=== PATIENT | male | born 1965 | race Caucasian/White ===

== ENCOUNTER 2022-06-10 17:40 | Inpatient (IN) | payer MEDICAID ==
[~2022-06-10] VITALS: Ht 185.4 cm; Wt 235.9 kg
[2022-06-10] MEDS ORDERED: ONDANSETRON HCL INJ 2MG/ML 2ML 2 MG/ML VIAL IV STA (18:49)
[2022-06-10] MEDS ORDERED: ACETAMINOPHEN 325 MG TAB PO ONE (19:00)
[2022-06-10] MEDS ORDERED: SODIUM CHLORIDE 0.9% 1000ML 1,000 ML IV ONE ×2 (19:00→20:30)
[2022-06-10] MEDS ORDERED: BENZONATATE 100 MG CAP PO PRN ×2 (19:00→23:30)
[2022-06-10] MEDS ORDERED: KETOROLAC TROMETHAMINE 60 MG/2 ML VIAL IM ONE (19:00)
[2022-06-10 19:07] LABS: BASOPHILS % 0.1 % (0.0-1.0); HEMATOCRIT 44.7 % (38.2-49.6); HEMOGLOBIN 14.4 g/dL (14.0-18.0); LYMPHOCYTES # (AUTO) 0.4 (1.0-3.2); LYMPHOCYTES % 1.6 % (18.0-39.1); MEAN CORPUSCULAR HEMOGLOBIN 28.3 pg (28-32); MEAN CORPUSCULAR HGB CONC 32.2 g/dL (31-35); MEAN CORPUSCULAR VOLUME 87.8 fL (81-99); MONOCYTES # (AUTO) 0.7 (0.2-0.8); MONOCYTES % 2.7 % (4.4-11.3); NEUTROPHILS # (AUTO) 22.4 (2.1-6.9); NEUTROPHILS % 94.8 % (38.7-80.0); PLATELET COUNT 201 x10e3/uL (140-360); RED BLOOD COUNT 5.09 x10e6/uL (4.3-5.7); RED CELL DISTRIBUTION WIDTH 13.5 % (11.7-14.4)
[2022-06-10 19:24] LABS: ALBUMIN 3.2 g/dL (3.5-5.0); ALBUMIN/GLOBULIN RATIO 0.7 (0.8-2.0); ANION GAP 15.3 mmol/L (8-16); CALCIUM 9.3 mg/dL (8.4-10.2); CREATININE, SERUM 1.21 mg/dL (0.72-1.25); POTASSIUM 4.3 mmol/L (3.5-5.1)
[2022-06-10] MEDS ORDERED: Vancomycin IV 2 GM in SODIUM CHLORIDE 0.9% 500ML 500 ML IV STA (19:50)
[2022-06-10] MEDS ORDERED: SODIUM CHLORIDE 0.9% 500ML 500 ML ONE (20:18)
[2022-06-10] MEDS ORDERED: Vancomycin IV 1 GM VIAL ONE (20:18)
[2022-06-10] MEDS ORDERED: CEFTRIAXONE 1 GM VIAL IV ONE (21:15)
[2022-06-10] MEDS ORDERED: ONDANSETRON HCL INJ 2MG/ML 2ML 2 MG/ML VIAL IV PRN ×2 (21:30→23:30)
[2022-06-10] MEDS ORDERED: SODIUM CHLORIDE FLUSH 10 ML SYR INJ PRN (21:30)
[2022-06-10] MEDS ORDERED: ACETAMINOPHEN 325 MG TAB PO PRN (23:00)
[2022-06-10] MEDS ORDERED: DIPHENHYDRAMINE HCL 25 MG CAP PO PRN (23:30)
[2022-06-10] MEDS ORDERED: DEXTROSE 50% SYRINGE 50 ML IV PRN (23:30)
[2022-06-10] MEDS ORDERED: LIDOCAINE 4% PATCH TP PRN (23:30)
[2022-06-10] MEDS ORDERED: HYDRALAZINE HCL 20 MG/ML VIAL IV PRN (23:30)
[2022-06-10] MEDS ORDERED: ALBUTEROL/IPRATROPIUM 3 ML NEB NEB PRN (23:30)
[2022-06-10] MEDS ORDERED: SIMETHICONE 80 MG CHEW PO PRN (23:30)
[2022-06-10] MEDS: NOREPINEPHRINE 8 MG/D5W 250 ML 250 ML IV SCH (23:34)
[2022-06-10] MEDS ORDERED: NOREPINEPHRINE 8 MG/D5W 250 ML 250 ML ONE (23:39)
[2022-06-11] VITALS (76 sets, daily range): BP systolic 75–150; BP diastolic 30–126
[2022-06-11 01:15] LABS: CLARITY,URINE SL CLOUDY (CLEAR); COLOR,URINE AMBER (YELLOW); KETONES,URINE TRACE (NEGATIVE); LEUKOCYTE ESTERASE ,URINE NEGATIVE (NEGATIVE); NITRITE,URINE NEGATIVE (NEGATIVE); PROTEIN,URINE DIPSTICK 1+ (NEGATIVE); URINE UROBILINOGEN 0.2 mg/dL (0.2 - 1)
[2022-06-11 01:18] LABS: AMORPHOUS SEDIMENT,URINE FEW (FEW); BACTERIA,URINE FEW /HPF; EPITHELIAL CELLS,URINE RARE /LPF; RBC,URINE 0-5 /HPF (0-5)
[2022-06-11] MEDS: LACTATED RINGER'S 1,000 ML INJ SCH ×2 (01:30→07:40)
[2022-06-11 05:18] LABS: BASOPHILS % 0.2 % (0.0-1.0); HEMATOCRIT 41.6 % (38.2-49.6); HEMOGLOBIN 13.2 g/dL (14.0-18.0); LYMPHOCYTES # (AUTO) 0.4 (1.0-3.2); LYMPHOCYTES % 2.2 % (18.0-39.1); MEAN CORPUSCULAR HEMOGLOBIN 28.4 pg (28-32); MEAN CORPUSCULAR HGB CONC 31.7 g/dL (31-35); MEAN CORPUSCULAR VOLUME 89.7 fL (81-99); MONOCYTES # (AUTO) 0.6 (0.2-0.8); NEUTROPHILS # (AUTO) 17.9 (2.1-6.9); NEUTROPHILS % 94.1 % (38.7-80.0); PLATELET COUNT 144 x10e3/uL (140-360); RED BLOOD COUNT 4.64 x10e6/uL (4.3-5.7); RED CELL DISTRIBUTION WIDTH 13.7 % (11.7-14.4)
[2022-06-11 05:55] LABS: ALBUMIN 2.7 g/dL (3.5-5.0); ALBUMIN/GLOBULIN RATIO 0.7 (0.8-2.0); ANION GAP 12.4 mmol/L (8-16); CALCIUM 8.5 mg/dL (8.4-10.2); CREATININE, SERUM 1.03 mg/dL (0.72-1.25); POTASSIUM 4.4 mmol/L (3.5-5.1)
[2022-06-11 06:13] LABS: CHOL/HDL RATIO 3.8 (3.9-4.7); MAGNESIUM 1.6 MG/DL (1.3-2.1)
[2022-06-11 06:34] LABS: THYROID STIMULATING HORMONE 0.302 uIU/mL (0.350-4.940)
[2022-06-11] MEDS: PANTOPRAZOLE SOD 40 MG TABEC PO SCH (07:39)
[2022-06-11] MEDS: ACETAMINOPHEN 325 MG TAB PO PRN ×3 (08:58→22:10)
[2022-06-11] MEDS: MUPIROCIN 2% OINT 22 GM TUBE TOP SCH ×2 (08:59→20:06)
[2022-06-11] MEDS ORDERED: Vancomycin IV 1 GM in SODIUM CHLORIDE 0.9% 250ML 250 ML IV SCH (09:00)
[2022-06-11] MEDS: ENOXAPARIN SOD INJ 40 MG/0.4 ML SYR SC SCH (16:49)
[2022-06-11] MEDS: Vancomycin IV 2 GM in SODIUM CHLORIDE 0.9% 500ML 500 ML IV SCH (20:05)
[2022-06-11] MEDS: NOREPINEPHRINE 8 MG/D5W 250 ML 250 ML IV SCH (23:30)
[2022-06-12] VITALS (31 sets, daily range): BP systolic 91–154; BP diastolic 39–122
[2022-06-12] MEDS: HYDROCODONE/APAP 5MG-325MG TAB PO PRN ×2 (02:53→15:36)
[2022-06-12] MEDS: PANTOPRAZOLE SOD 40 MG TABEC PO SCH (07:52)
[2022-06-12] MEDS: Vancomycin IV 2 GM in SODIUM CHLORIDE 0.9% 500ML 500 ML IV SCH ×2 (09:28→21:29)
[2022-06-12] MEDS: MUPIROCIN 2% OINT 22 GM TUBE TOP SCH ×2 (09:28→21:30)
[2022-06-12] MEDS: COLLAGENASE 5 GM TUBE TOP SCH (13:00)
[2022-06-12] MEDS: FUROSEMIDE INJ 10 MG/ML 4 ML VIAL IV SCH ×2 (15:31→21:30)
[2022-06-12] MEDS: ENOXAPARIN SOD INJ 40 MG/0.4 ML SYR SC SCH (17:13)
[2022-06-12] MEDS: MELATONIN 5 MG TABLET PO PRN (21:30)
[2022-06-13] VITALS (8 sets, daily range): BP systolic 140–174; BP diastolic 56–69
[2022-06-13] MEDS: HYDROCODONE/APAP 5MG-325MG TAB PO PRN ×2 (05:24→20:45)
[2022-06-13] MEDS: FUROSEMIDE INJ 10 MG/ML 4 ML VIAL IV SCH ×3 (05:27→20:44)
[2022-06-13] MEDS: PANTOPRAZOLE SOD 40 MG TABEC PO SCH (08:51)
[2022-06-13 09:00] LABS: BASOPHILS % 0.2 % (0.0-1.0); EOSINOPHILS # (AUTO) 0.1 (0.0-0.4); EOSINOPHILS % 0.8 % (0.0-6.0); HEMATOCRIT 36.9 % (38.2-49.6); HEMOGLOBIN 11.5 g/dL (14.0-18.0); LYMPHOCYTES % 10.5 % (18.0-39.1); MEAN CORPUSCULAR HEMOGLOBIN 27.8 pg (28-32); MEAN CORPUSCULAR HGB CONC 31.2 g/dL (31-35); MEAN CORPUSCULAR VOLUME 89.1 fL (81-99); MONOCYTES # (AUTO) 0.7 (0.2-0.8); NEUTROPHILS # (AUTO) 7.4 (2.1-6.9); NEUTROPHILS % 80.1 % (38.7-80.0); PLATELET COUNT 143 x10e3/uL (140-360); RED BLOOD COUNT 4.14 x10e6/uL (4.3-5.7); RED CELL DISTRIBUTION WIDTH 13.4 % (11.7-14.4)
[2022-06-13] MEDS: MUPIROCIN 2% OINT 22 GM TUBE TOP SCH ×2 (09:00→20:45)
[2022-06-13 09:18] LABS: ANION GAP 11.9 mmol/L (8-16); CALCIUM 8.8 mg/dL (8.4-10.2); CREATININE, SERUM 0.76 mg/dL (0.72-1.25); POTASSIUM 3.9 mmol/L (3.5-5.1)
[2022-06-13] MEDS: Vancomycin IV 2 GM in SODIUM CHLORIDE 0.9% 500ML 500 ML IV SCH ×2 (09:31→20:45)
[2022-06-13] MEDS: ENOXAPARIN SOD INJ 40 MG/0.4 ML SYR SC SCH (16:50)
[2022-06-13] MEDS: COLLAGENASE 5 GM TUBE TOP SCH (16:51)
[2022-06-13] MEDS ORDERED: METOLAZONE 5 MG TAB PO ONE (21:15)
[2022-06-14] VITALS (9 sets, daily range): BP systolic 133–166; BP diastolic 52–64
[2022-06-14] MEDS: HYDROCODONE/APAP 5MG-325MG TAB PO PRN ×2 (04:10→20:20)
[2022-06-14] MEDS: FUROSEMIDE INJ 10 MG/ML 4 ML VIAL IV SCH (05:22)
[2022-06-14 07:12] LABS: ANION GAP 13.4 mmol/L (8-16); CALCIUM 9.1 mg/dL (8.4-10.2); CREATININE, SERUM 0.71 mg/dL (0.72-1.25); POTASSIUM 3.4 mmol/L (3.5-5.1)
[2022-06-14 07:29] LABS: BASOPHILS % 0.2 % (0.0-1.0); EOSINOPHILS # (AUTO) 0.2 (0.0-0.4); EOSINOPHILS % 1.4 % (0.0-6.0); HEMATOCRIT 37.9 % (38.2-49.6); HEMOGLOBIN 12.2 g/dL (14.0-18.0); LYMPHOCYTES # (AUTO) 1.3 (1.0-3.2); MEAN CORPUSCULAR HEMOGLOBIN 28.4 pg (28-32); MEAN CORPUSCULAR HGB CONC 32.2 g/dL (31-35); MEAN CORPUSCULAR VOLUME 88.1 fL (81-99); MONOCYTES # (AUTO) 1.2 (0.2-0.8); MONOCYTES % 10.8 % (4.4-11.3); NEUTROPHILS # (AUTO) 7.9 (2.1-6.9); NEUTROPHILS % 74.7 % (38.7-80.0); PLATELET COUNT 191 x10e3/uL (140-360); RED CELL DISTRIBUTION WIDTH 13.6 % (11.7-14.4)
[2022-06-14] MEDS: Vancomycin IV 2 GM in SODIUM CHLORIDE 0.9% 500ML 500 ML IV SCH ×2 (08:51→20:20)
[2022-06-14] MEDS: PANTOPRAZOLE SOD 40 MG TABEC PO SCH (08:52)
[2022-06-14] MEDS: MUPIROCIN 2% OINT 22 GM TUBE TOP SCH ×2 (13:41→20:21)
[2022-06-14] MEDS: COLLAGENASE 5 GM TUBE TOP SCH (15:23)
[2022-06-14] MEDS: ENOXAPARIN SOD INJ 40 MG/0.4 ML SYR SC SCH (17:46)
[2022-06-14] MEDS: MELATONIN 5 MG TABLET PO PRN (20:20)
[2022-06-14] MEDS: LOSARTAN POTASSIUM 100 MG TAB PO SCH (23:09)
[2022-06-15] VITALS (8 sets, daily range): BP systolic 114–152; BP diastolic 47–82
[2022-06-15] MEDS: HYDROCODONE/APAP 5MG-325MG TAB PO PRN ×2 (05:40→19:03)
[2022-06-15 06:23] LABS: BASOPHILS % 0.3 % (0.0-1.0); EOSINOPHILS # (AUTO) 0.1 (0.0-0.4); EOSINOPHILS % 1.1 % (0.0-6.0); HEMATOCRIT 40.9 % (38.2-49.6); HEMOGLOBIN 13.1 g/dL (14.0-18.0); LYMPHOCYTES # (AUTO) 1.3 (1.0-3.2); LYMPHOCYTES % 12.4 % (18.0-39.1); MEAN CORPUSCULAR HEMOGLOBIN 27.8 pg (28-32); MEAN CORPUSCULAR VOLUME 86.8 fL (81-99); MONOCYTES # (AUTO) 1.3 (0.2-0.8); MONOCYTES % 13.1 % (4.4-11.3); NEUTROPHILS # (AUTO) 7.2 (2.1-6.9); NEUTROPHILS % 70.9 % (38.7-80.0); PLATELET COUNT 212 x10e3/uL (140-360); RED BLOOD COUNT 4.71 x10e6/uL (4.3-5.7); RED CELL DISTRIBUTION WIDTH 13.4 % (11.7-14.4)
[2022-06-15 06:42] LABS: ANION GAP 15.2 mmol/L (8-16); CALCIUM 8.7 mg/dL (8.4-10.2); CREATININE, SERUM 0.76 mg/dL (0.72-1.25); POTASSIUM 3.2 mmol/L (3.5-5.1)
[2022-06-15] MEDS: Vancomycin IV 2 GM in SODIUM CHLORIDE 0.9% 500ML 500 ML IV SCH ×2 (08:58→20:36)
[2022-06-15] MEDS: PANTOPRAZOLE SOD 40 MG TABEC PO SCH (08:58)
[2022-06-15] MEDS: COLLAGENASE 5 GM TUBE TOP SCH (08:59)
[2022-06-15] MEDS: LOSARTAN POTASSIUM 100 MG TAB PO SCH (08:59)
[2022-06-15] MEDS: MUPIROCIN 2% OINT 22 GM TUBE TOP SCH ×2 (08:59→20:21)
[2022-06-15] MEDS ORDERED: BUMETANIDE 1 MG TAB PO SCH (09:00)
[2022-06-15] MEDS ORDERED: METOLAZONE 5 MG TAB PO ONE (16:00)
[2022-06-15] MEDS: ENOXAPARIN SOD INJ 40 MG/0.4 ML SYR SC SCH (17:40)
[2022-06-15] MEDS: FUROSEMIDE INJ 100 MG in SODIUM CHLORIDE 0.9% 90 ML IV SCH (17:40)
[2022-06-15] MEDS: POTASSIUM CHLORIDE 20 MEQ TAB CR PO PRN (19:02)
[2022-06-15] MEDS ORDERED: SODIUM CHLORIDE 0.9% 500ML 500 ML ONE (21:41)
[2022-06-16 01:10] VITALS: BP 110/57
[2022-06-16] MEDS: FUROSEMIDE INJ 100 MG in SODIUM CHLORIDE 0.9% 90 ML IV SCH ×3 (02:43→22:16)
[2022-06-16 05:25] VITALS: BP 123/51
[2022-06-16 05:49] LABS: BASOPHILS % 0.3 % (0.0-1.0); EOSINOPHILS # (AUTO) 0.2 (0.0-0.4); EOSINOPHILS % 1.7 % (0.0-6.0); HEMATOCRIT 39.2 % (38.2-49.6); HEMOGLOBIN 12.4 g/dL (14.0-18.0); LYMPHOCYTES # (AUTO) 1.7 (1.0-3.2); LYMPHOCYTES % 14.2 % (18.0-39.1); MEAN CORPUSCULAR HEMOGLOBIN 27.4 pg (28-32); MEAN CORPUSCULAR HGB CONC 31.6 g/dL (31-35); MEAN CORPUSCULAR VOLUME 86.5 fL (81-99); MONOCYTES # (AUTO) 1.4 (0.2-0.8); MONOCYTES % 11.2 % (4.4-11.3); NEUTROPHILS # (AUTO) 8.4 (2.1-6.9); NEUTROPHILS % 69.2 % (38.7-80.0); PLATELET COUNT 256 x10e3/uL (140-360); RED BLOOD COUNT 4.53 x10e6/uL (4.3-5.7); RED CELL DISTRIBUTION WIDTH 13.5 % (11.7-14.4)
[2022-06-16 06:19] LABS: ANION GAP 16.1 mmol/L (8-16); CALCIUM 9.3 mg/dL (8.4-10.2); CREATININE, SERUM 1.43 mg/dL (0.72-1.25); POTASSIUM 3.1 mmol/L (3.5-5.1)
[2022-06-16] MEDS ORDERED: IPRATROPIUM BROMIDE 0.02% 2.5 ML NEB NEB PRN (06:30)
[2022-06-16] MEDS ORDERED: ALBUTEROL SULF 0.083% NEB SOLN 3 ML NEB NEB PRN (06:30)
[2022-06-16 08:34] VITALS: BP 131/59
[2022-06-16] MEDS: LOSARTAN POTASSIUM 100 MG TAB PO SCH (09:21)
[2022-06-16] MEDS: MUPIROCIN 2% OINT 22 GM TUBE TOP SCH ×2 (09:21→21:01)
[2022-06-16] MEDS: COLLAGENASE 5 GM TUBE TOP SCH (09:21)
[2022-06-16] MEDS: PANTOPRAZOLE SOD 40 MG TABEC PO SCH (09:21)
[2022-06-16] MEDS ORDERED: ONDANSETRON HCL 4 MG ORAL DISINTEGRATING TAB PO PRN (11:15)
[2022-06-16 12:00] VITALS: BP 123/83
[2022-06-16 16:08] VITALS: BP 98/76
[2022-06-16] MEDS: CLINDAMYCIN PHOS 900MG/ 50ML 50 ML IV SCH ×2 (17:40→21:01)
[2022-06-16] MEDS: ENOXAPARIN SOD INJ 40 MG/0.4 ML SYR SC SCH (17:40)
[2022-06-16 20:00] VITALS: BP_SYST 122; BP_DIAS 84; BP_DIAS 89
[2022-06-16] MEDS: HYDROCODONE/APAP 5MG-325MG TAB PO PRN (21:00)
[2022-06-16] MEDS ORDERED: POTASSIUM CHLORIDE 20 MEQ TAB CR PO STA (22:22)
[2022-06-16] MEDS: ACETAZOLAMIDE 500 MG CAP PO SCH (22:30)
[2022-06-17] VITALS (8 sets, daily range): BP systolic 104–134; BP diastolic 43–67
[2022-06-17 05:34] LABS: BASOPHILS % 0.3 % (0.0-1.0); EOSINOPHILS # (AUTO) 0.2 (0.0-0.4); EOSINOPHILS % 1.6 % (0.0-6.0); HEMOGLOBIN 12.1 g/dL (14.0-18.0); LYMPHOCYTES # (AUTO) 1.7 (1.0-3.2); LYMPHOCYTES % 13.6 % (18.0-39.1); MEAN CORPUSCULAR HEMOGLOBIN 27.4 pg (28-32); MEAN CORPUSCULAR HGB CONC 31.8 g/dL (31-35); MONOCYTES # (AUTO) 1.1 (0.2-0.8); MONOCYTES % 8.9 % (4.4-11.3); PLATELET COUNT 273 x10e3/uL (140-360); RED BLOOD COUNT 4.42 x10e6/uL (4.3-5.7); RED CELL DISTRIBUTION WIDTH 13.5 % (11.7-14.4)
[2022-06-17 06:12] LABS: ANION GAP 17.1 mmol/L (8-16); CALCIUM 9.2 mg/dL (8.4-10.2); CREATININE, SERUM 1.92 mg/dL (0.72-1.25); POTASSIUM 3.1 mmol/L (3.5-5.1)
[2022-06-17] MEDS: CLINDAMYCIN PHOS 900MG/ 50ML 50 ML IV SCH ×3 (06:29→21:19)
[2022-06-17] MEDS: PANTOPRAZOLE SOD 40 MG TABEC PO SCH (08:33)
[2022-06-17] MEDS: HYDROCODONE/APAP 5MG-325MG TAB PO PRN ×2 (08:34→10:32)
[2022-06-17] MEDS: LOSARTAN POTASSIUM 100 MG TAB PO SCH (08:35)
[2022-06-17] MEDS: POTASSIUM CHLORIDE 20 MEQ TAB CR PO PRN (09:18)
[2022-06-17] MEDS: ACETAZOLAMIDE 500 MG CAP PO SCH ×2 (09:18→18:38)
[2022-06-17] MEDS: FUROSEMIDE INJ 100 MG in SODIUM CHLORIDE 0.9% 90 ML IV SCH ×2 (10:27→18:00)
[2022-06-17] MEDS: MUPIROCIN 2% OINT 22 GM TUBE TOP SCH ×2 (10:30→21:19)
[2022-06-17] MEDS: COLLAGENASE 5 GM TUBE TOP SCH (12:21)
[2022-06-17] MEDS: ENOXAPARIN SOD INJ 40 MG/0.4 ML SYR SC SCH (18:38)
[2022-06-18] VITALS (8 sets, daily range): BP systolic 105–148; BP diastolic 47–70
[2022-06-18] MEDS: ACETAMINOPHEN 325 MG TAB PO PRN (02:26)
[2022-06-18] MEDS: CLINDAMYCIN PHOS 900MG/ 50ML 50 ML IV SCH ×3 (05:27→21:09)
[2022-06-18] MEDS: PANTOPRAZOLE SOD 40 MG TABEC PO SCH (09:14)
[2022-06-18] MEDS: COLLAGENASE 5 GM TUBE TOP SCH (12:42)
[2022-06-18] MEDS ORDERED: SODIUM CHLORIDE 0.9% 1000ML 1,000 ML IV ONE (16:30)
[2022-06-18] MEDS: DOCUSATE SODIUM 100 MG CAP PO PRN (16:47)
[2022-06-18] MEDS: ENOXAPARIN SOD INJ 40 MG/0.4 ML SYR SC SCH (16:48)
[2022-06-19] VITALS (8 sets, daily range): BP systolic 99–136; BP diastolic 65–86
[2022-06-19] MEDS: CLINDAMYCIN PHOS 900MG/ 50ML 50 ML IV SCH ×3 (05:07→21:09)
[2022-06-19] MEDS: DOCUSATE SODIUM 100 MG CAP PO PRN ×2 (05:20→21:17)
[2022-06-19 06:03] LABS: BASOPHILS # (AUTO) 0.1 (0.0-0.1); BASOPHILS % 0.5 % (0.0-1.0); EOSINOPHILS # (AUTO) 0.1 (0.0-0.4); HEMOGLOBIN 12.1 g/dL (14.0-18.0); LYMPHOCYTES # (AUTO) 1.9 (1.0-3.2); LYMPHOCYTES % 15.7 % (18.0-39.1); MEAN CORPUSCULAR HEMOGLOBIN 27.8 pg (28-32); MEAN CORPUSCULAR HGB CONC 31.8 g/dL (31-35); MEAN CORPUSCULAR VOLUME 87.2 fL (81-99); MONOCYTES # (AUTO) 0.9 (0.2-0.8); MONOCYTES % 7.6 % (4.4-11.3); NEUTROPHILS # (AUTO) 8.8 (2.1-6.9); NEUTROPHILS % 73.5 % (38.7-80.0); PLATELET COUNT 341 x10e3/uL (140-360); RED BLOOD COUNT 4.36 x10e6/uL (4.3-5.7); RED CELL DISTRIBUTION WIDTH 13.7 % (11.7-14.4)
[2022-06-19 06:24] LABS: ANION GAP 17.7 mmol/L (8-16); CALCIUM 8.9 mg/dL (8.4-10.2); CREATININE, SERUM 2.48 mg/dL (0.72-1.25); POTASSIUM 3.7 mmol/L (3.5-5.1)
[2022-06-19] MEDS: COLLAGENASE 5 GM TUBE TOP SCH (09:06)
[2022-06-19] MEDS: PANTOPRAZOLE SOD 40 MG TABEC PO SCH (09:06)
[2022-06-19] MEDS ORDERED: SODIUM CHLORIDE 0.9% 1000ML 1,000 ML IV SCH (15:15)
[2022-06-20] VITALS (8 sets, daily range): BP systolic 130–146; BP diastolic 66–96
[2022-06-20] MEDS: CLINDAMYCIN PHOS 900MG/ 50ML 50 ML IV SCH ×3 (06:03→21:56)
[2022-06-20] MEDS: COLLAGENASE 5 GM TUBE TOP SCH (08:59)
[2022-06-20] MEDS: PANTOPRAZOLE SOD 40 MG TABEC PO SCH (08:59)
[2022-06-20 18:09] LABS: ANION GAP 15.6 mmol/L (8-16); CALCIUM 9.4 mg/dL (8.4-10.2); CREATININE, SERUM 1.93 mg/dL (0.72-1.25); POTASSIUM 3.6 mmol/L (3.5-5.1)
[2022-06-20] MEDS: ACETAMINOPHEN 325 MG TAB PO PRN (23:29)
[2022-06-21] VITALS: BP 107/53
[2022-06-21 05:44] LABS: BASOPHILS % 0.3 % (0.0-1.0); EOSINOPHILS # (AUTO) 0.1 (0.0-0.4); EOSINOPHILS % 1.2 % (0.0-6.0); HEMATOCRIT 38.6 % (38.2-49.6); HEMOGLOBIN 12.3 g/dL (14.0-18.0); LYMPHOCYTES # (AUTO) 1.2 (1.0-3.2); LYMPHOCYTES % 11.4 % (18.0-39.1); MEAN CORPUSCULAR HEMOGLOBIN 27.6 pg (28-32); MEAN CORPUSCULAR HGB CONC 31.9 g/dL (31-35); MEAN CORPUSCULAR VOLUME 86.7 fL (81-99); MONOCYTES # (AUTO) 0.8 (0.2-0.8); NEUTROPHILS # (AUTO) 8.6 (2.1-6.9); NEUTROPHILS % 79.5 % (38.7-80.0); PLATELET COUNT 332 x10e3/uL (140-360); RED BLOOD COUNT 4.45 x10e6/uL (4.3-5.7); RED CELL DISTRIBUTION WIDTH 13.2 % (11.7-14.4)
[2022-06-21] MEDS: CLINDAMYCIN PHOS 900MG/ 50ML 50 ML IV SCH ×2 (06:00→13:48)
[2022-06-21 06:14] LABS: ANION GAP 14.7 mmol/L (8-16); CALCIUM 9.2 mg/dL (8.4-10.2); CREATININE, SERUM 1.79 mg/dL (0.72-1.25); POTASSIUM 3.7 mmol/L (3.5-5.1)
[2022-06-21 08:00] VITALS: BP 139/73
[2022-06-21 08:18] VITALS: BP 139/73
[2022-06-21] MEDS: COLLAGENASE 5 GM TUBE TOP SCH (08:48)
[2022-06-21] MEDS: PANTOPRAZOLE SOD 40 MG TABEC PO SCH (08:48)
[2022-06-21 11:49] VITALS: BP 137/77
[2022-06-21 15:49] VITALS: BP 157/66
== END 2022-06-21 17:34 | disposition home or self-care (01) | DRG 871 ==
LOC: ER 18:29 → ERHOLD 21:20 → OBSVTOIN 06-11 → ICU 06-11 00:27 → MED/SURG3 06-12 14:28
PROVIDERS: ADMIT Internal Medicine; ATTEND Internal Medicine
PROC: 02HV33Z Insertion of Infusion Device into Superior Vena Cava, Percutaneous Approach (ICD-10-PCS; principal; 2022-06-10)
DX: A41.9 Sepsis, unspecified organism (principal); J18.9 Pneumonia, unspecified organism; N17.9 Acute kidney failure, unspecified; L03.116 Cellulitis of left lower limb; L97.829 Non-pressure chronic ulcer of other part of left lower leg with unspecified severity; Z68.44 Body mass index [BMI] 60.0-69.9, adult; E66.01 Morbid (severe) obesity due to excess calories; I10 Essential (primary) hypertension; E78.5 Hyperlipidemia, unspecified; F17.210 Nicotine dependence, cigarettes, uncomplicated; G47.33 Obstructive sleep apnea (adult) (pediatric); Z20.822 Contact with and (suspected) exposure to COVID-19; Z91.199 Patient's noncompliance with other medical treatment and regimen due to unspecified reason
CPT/HCPCS: 36415; 36569; 71045; 71046; 80048; 80053; 80061; 80202; 81001; 82948; 83036; 83605; 83735; 84443; 85025; 87040; 87071; 87086; 87205; 93306; 93970; 94799; 96361; 96365; 96366; 99252; 99285; G0378; J0692; J0696; J1650; J1885; J1940; J2405; J7030; J7040; J7050